=== PATIENT | male | born 1970 | race Two or more races ===

== ENCOUNTER 2019-07-23 07:50 | Emergency (ER) | payer SELFPAY ==
[~2019-07-23] VITALS: Ht 167.6 cm; Wt 103.5 kg
[~2019-07-23 07:50] MED LIST: ASPI325T11 PO; ATOR40TA59 PO; CLOP75TA PO; LISI-338 PO; METO25TA4 PO; NAPR220T70 PO
[2019-07-23] MEDS ORDERED: IV NORMAL SALINE 1000ML BAG 1,000 ML IV SCH (08:11)
[2019-07-23] MEDS ORDERED: fentaNYL PF VIAL 100 MCG/2 ML VIAL IV ONE (08:15)
[2019-07-23] MEDS ORDERED: ONDANSETRON PF 4 MG/2 ML VIAL. IV ONE (08:15)
[2019-07-23 08:31] LABS: BILIRUBIN,URINE NEGATIVE (NEG); CLARITY,URINE CLEAR; COLOR,URINE YELLOW; NITRITE,URINE NEGATIVE (NEG); PH,URINE 5.5; PROTEIN,URINE NEGATIVE (NEG-TRACE); UROBILINOGEN,URINE 0.2 mg/dL (0.2 mg/dL)
[2019-07-23 08:35] LABS: RBC,URINE 20-40 /HPF (0-2)
[2019-07-23 08:36] LABS: BACTERIA,URINE 0 /HPF (0-FEW); WBC,URINE 0 /HPF (0-4)
[2019-07-23 08:49] LABS: BASO # 0.1 x10^3/uL (0.0-0.2); BASO % 1 % (0-3); EOS # 0.1 x10^3/uL (0.0-0.7); EOS % 1 % (0-3); HEMATOCRIT 44.7 % (39.0-53.0); HEMOGLOBIN 15.4 g/dL (13.0-17.5); LYMPH # 1.8 x10^3/uL (1.0-4.8); LYMPH % 16 % (24-48); MEAN CORPUSCULAR HEMOGLOBIN 29 pg (25-35); MEAN CORPUSCULAR HGB CONC 34 g/dL (31-37); MEAN CORPUSCULAR VOLUME 83 fL (79-100); MONO # 0.5 x10^3/uL (0.0-1.1); MONO % 4 % (0-9); NEUT # 8.8 x10^3/uL (1.8-7.7); NEUT % 79 % (31-73); PLATELET COUNT 291 x10^3/uL (140-400); WHITE BLOOD COUNT 11.3 x10^3/uL (4.0-11.0)
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
[2019-07-23 09:00] LABS: CALCIUM 9.1 mg/dL (8.5-10.1); GFR 79.4; POTASSIUM 4.1 mmol/L (3.5-5.1)
[2019-07-23 09:07] LABS: ALBUMIN/GLOBULIN RATIO 1.1 (1.0-1.7); TOTAL BILIRUBIN 0.3 mg/dL (0.2-1.0); TOTAL PROTEIN 7.8 g/dL (6.4-8.2)
--- NOTE | 2019-07-23 09:32 | RAD ---
CT STUDY OF THE ABDOMEN AND PELVIS WITHOUT CONTRAST CLINICAL INDICATIONS: Left flank pain left lower quadrant pain. TECHNIQUE: Noncontrast helical CT scanning of the abdomen and pelvis was performed. Without contrast, the sensitivity to detect organ pathology and GI tract pathology is decreased. PQRS compliance Statement One or more of the following individualized dose reduction techniques were utilized for this study: 1. Automated exposure control 2. Adjustment of the mA and/or kV according to patient size 3. Use of iterative reconstruction technique COMPARISON: None available. FINDINGS: The liver and spleen and pancreas are homogeneous in appearance on this noncontrast study. The gallbladder is normal and no extrahepatic biliary ductal dilatation is seen. No adrenal mass is evident. Small punctate nonobstructing stone of the mid aspect of the right kidney is seen. 2 small stones of the lower pole of the left kidney are seen. Each measures 5 mm. There is mild left-sided hydronephrosis. This is due to a stone within the proximal left ureter measuring 6 mm in size located 2 cm distal to the UPJ. There is periureteral edema here. No hydronephrosis or hydroureter is seen on the right side. No renal mass is seen on either side on this noncontrast study. No perinephric fluid collection is seen. Urinary bladder is not distended. No focal aneurysmal dilatation of the abdominal aorta is seen. No enlarged abdominal or pelvic lymphadenopathy is evident. The terminal ileum and appendix are normal. No obstructive bowel pattern is evident. No free air or free fluid or mesenteric edema is evident. No lung base consolidation is evident. No lytic process is evident. IMPRESSION: Mild left-sided hydronephrosis due to a 6 mm proximal left ureteral stone located 2 cm distal to the UPJ. Electronically signed by: Fernandez Fernández MD (07/23/2019 9:29 AM) [facility]
[2019-07-23] MEDS ORDERED: KETOROLAC 30 MG/ML VIAL. IVP ONE (09:45)
[2019-07-23] MEDS ORDERED: HYDROcodone/APAP 5/325MG 1 TAB TABLET PO ONE (09:45)
[2019-07-23] MEDS ORDERED: TAMSULOSIN 0.4 MG CAP.ER.24H. PO ONE (09:45)
[2019-07-23 10:00] VITALS: BP 142/70
[2019-07-23] MEDS ORDERED: HYDR-3164 PO (10:15)
[2019-07-23] MEDS ORDERED: TAMS0.4C97 PO (10:15)
[2019-07-23] MEDS ORDERED: IBUP-1060 PO (10:15)
== END 2019-07-23 10:21 | disposition home or self-care (01) ==
LOC: ER 07:50
DX: N20.0 Calculus of kidney (principal); N23 Unspecified renal colic; I10 Essential (primary) hypertension; I25.2 Old myocardial infarction
CPT/HCPCS: 36415; 74176; 80053; 81001; 83690; 85025; 96374; 96375; 99285; J1885; J2405; J3010; J7030

== ENCOUNTER 2019-08-18 00:58 | Emergency (ER) | payer SELFPAY ==
[~2019-08-18] VITALS: Ht 167.6 cm; Wt 104.3 kg
[~2019-08-18 00:58] MED LIST changes: +HYDR-3164 PO; +IBUP-1060 PO; +TAMS0.4C97 PO
[2019-08-18 01:23] VITALS: BP 153/86
--- NOTE | 2019-08-18 02:23 | PHYS DOC ---
Past Medical History Past Medical History: High Cholesterol, Hypertension, [place], Other Additional Past Medical Histor: KIDNEY STONE Past Surgical History: Other Additional Past Surgical Histo: STENTS Alcohol Use: None Drug Use: None Adult General Chief Complaint Chief Complaint: UPPER EXTREMITY PAIN HPI HPI 49-year-old male with underlying history of hypertension history coronary artery disease status post 2 stent placement approximately 2 years ago complains of right head right neck shoulder and arm discomfort, paresthesia was shooting dago ns at times. 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 He does describe intermittent numbness and tingling of the right arm. Movements make his pain worse. He has no tenderness appreciated to his right shoulder on exam. Patient's blood pressure 153/86, saturations 96%, heart rate 86. Patient states this discomfort is not similar to his previous cardiac events. Patient denies any shortness of breath, nausea, vomiting, chest pain, abdominal pain Review of Systems Review of Systems Constitutional: Denies fever or chills [] Respiratory: Denies cough or shortness of breath [] Cardiovascular: No additional information not addressed in HPI [] GI: Denies abdominal pain, nausea, vomiting, bloody stools or diarrhea [] Musculoskeletal: right shoulder/neck pain with intermittent numbness and tingling Integument: Denies rash or skin lesions [] Neurologic: Denies headache, focal weakness or sensory changes [] All other systems were reviewed and found to be within normal limits, except as documented in this note. Current Medications Current Medications Current Medications Medications (Trade) Dose Ordered Sig/[facility] Start Time Stop Time Status Last Admin Dose Admin Ketorolac Tromethamine (Toradol Im) 60 mg 1X ONCE 08/18/19 02:30 08/18/19 02:31 DC 08/18/19 02:36 60 MG Orphenadrine Citrate (Norflex) 60 mg 1X ONCE 08/18/19 02:30 08/18/19 02:31 DC 08/18/19 02:34 60 MG Allergies Allergies Allergies Coded Allergies Type Severity Reaction Last Updated Verified No Known Drug Allergies 06/17/18 No Physical Exam Physical Exam Constitutional: Well developed, well nourished, no acute distress, non-toxic appearance. [] HENT: Normocephalic, atraumatic, bilateral external ears normal, oropharynx moist, no oral exudates, nose normal. [] Eyes: PERRLA, EOMI, conjunctiva normal, no discharge. [] Neck: Normal range of motion, TTP along trapezius, supple, no stridor. [] Cardiovascular:Heart rate regular rhythm, no murmur [] Lungs & Thorax: Bilateral breath sounds clear to auscultation [] Skin: Warm, dry, no erythema, no rash. [] Back: No tenderness, no CVA tenderness. [] Extremities: No tenderness, no edema. Intermittent numbness and tingling with movements, neck ROM with increased pain [] Neurologic: Alert and oriented X 3, no focal deficits noted. [] Psychologic: Affect normal, judgement normal, mood normal. [] Current Patient Data Vital Signs Vital Signs Date Time Temp Pulse Resp B/P (MAP) Pulse Ox O2 Delivery O2 Flow Rate FiO2 08/18/19 01:23 97.9 80 20 153/86 (108) 97 Room Air 97.9 EKG EKG [] Radiology/Procedures Radiology/Procedures [facility] [address] [place] [address] IMAGING REPORT Signed PATIENT: LYNNETTE ARIAS AACCOUNT: [id number] : 1970 LOCATION: ER AGE: 49 SEX: M EXAM STATUS: REG ER ORD. PHYSICIAN: ADY BILL MD REASON: neck pain, paresthesia with probable cervical radiculopathy PROCEDURE: CT HEAD AND CERVICAL SPINE WO CT head without contrast: Reason for examination: Neck pain and paresthesias with probable cervical radiculopathy. Axial images were obtained through the brain. No contrast was administered. Reconstruction was performed in sagittal and coronal planes. Ventricular systems are symmetric and not dilated. No midline shift is seen. There is no evidence of intracranial hemorrhage. There are no infarcts, masses or edema. No abnormalities of seen at the orbits. The paranasal sinuses and mastoid air cells are clear. No acute skull abnormality is seen. IMPRESSION: No acute intracranial abnormality evident. CT cervical spine without contrast: Helical images were obtained through the cervical spine from skull base through the thoracic apices with no contrast administered. Reconstruction was performed in sagittal and coronal planes. The C1 ring is intact. The odontoid process appears to be intact and normally centered between the lateral masses of C1. The cervical vertebral bodies are normally aligned anteriorly and posteriorly. No acute fracture or subluxation is seen. The posterior elements appear to be intact. The intervertebral discs are maintained. No gross abnormality seen at the spinal cord. There are some hypertrophic osteophyte formation posteriorly into the right at the C6-7 level which causes some right lateral recess stenosis. No other significant hypertrophic spurring or spinal stenosis is apparent. IMPRESSION: Hypertrophic spurring to the right at the C5-6 level causing right lateral recess stenosis. No other significant abnormality evident in the cervical spine. Exposure: One or more of the following individualized dose reduction techniques were utilized for this examination: 1. Automated exposure control 2. Adjustment of the mA and/or kV according to patient size 3. Use of iterative reconstruction technique. Electronically signed by: Lora Mckeon MD (08/18/2019 3:49 AM) [facility] DICTATED and SIGNED BY: LORA MCKEON MD DATE: 08/18/19 0349 [] Course & Med Decision Making Course & Med Decision Making Pertinent Labs and Imaging studies reviewed. (See chart for details) []49-year-old male with underlying history of hypertension history coronary artery disease status post 2 stent placement approximately 2 years ago complains of right head right neck shoulder and arm discomfort, paresthesia was shooting pains at times. 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 He does describe intermittent numbness and tingling of the right arm. Movements make his pain worse. He has no tenderness appreciated to his right shoulder on exam. Patient's blood pressure 153/86, saturations 96%, heart rate 86. Patient states this discomfort is not similar to his previous cardiac events. Patient denies any shortness of breath, nausea, vomiting, chest pain, abdominal pain Norflex/Toradol with improved pain CT with evidence of C5-C6 lateral recess stenosis discussed findings with patient Return precautions provided Recommend dc home and follow up with PCP as needed Dragon Disclaimer Dragon Disclaimer This electronic medical record was generated, in whole or in part, using a voice recognition dictation system. Departure Departure Impression: Primary Impression: Cervical radiculopathy at C5 Additional Impression: Cervical radiculopathy at C6 Disposition: HOME, SELF-CARE Condition: IMPROVED Referrals: NO PCP (PCP) Patient Instructions: Cervical Radiculopathy, [id number] Additional Instructions: Recommend follow up with PCP 3 - 5 days Return to the ER with worsening symptoms, intractable pain, fever, altered mental status Tylenol/Motrin as needed for pain Take new medications as prescribed CT with evidence of C5-C6 lateral recess stenosis Scripts Cyclobenzaprine Hcl (CYCLOBENZAPRINE HCL) 10 Mg Tablet 1 TAB PO TID PRN for MUSCLE SPASMS, #21 TAB Prov: ADY BILL MD 08/18/19 Diclofenac Sodium (DICLOFENAC SODIUM) 50 Mg Tablet.dr 1 TAB PO BID for 5 Days, #10 TAB 1 Refill Prov: ADY BILL MD 08/18/19 Problem Qualifiers ADY BILL MD Aug 18, 2019 02:23
[2019-08-18] MEDS ORDERED: KETOROLAC 60 MG/2 ML VIAL. IM ONE (02:30)
[2019-08-18] MEDS ORDERED: ORPHENADRINE CITRATE 60 MG/2 ML VIAL. IM ONE (02:30)
--- NOTE | 2019-08-18 03:52 | RAD ---
CT head without contrast: Reason for examination: Neck pain and paresthesias with probable cervical radiculopathy. Axial images were obtained through the brain. No contrast was administered. Reconstruction was performed in sagittal and coronal planes. Ventricular systems are symmetric and not dilated. No midline shift is seen. There is no evidence of intracranial hemorrhage. There are no infarcts, masses or edema. No abnormalities of seen at the orbits. The paranasal sinuses and mastoid air cells are clear. No acute skull abnormality is seen. IMPRESSION: No acute intracranial abnormality evident. CT cervical spine without contrast: Helical images were obtained through the cervical spine from skull base through the thoracic apices with no contrast administered. Reconstruction was performed in sagittal and coronal planes. The C1 ring is intact. The odontoid process appears to be intact and normally centered between the lateral masses of C1. The cervical vertebral bodies are normally aligned anteriorly and posteriorly. No acute fracture or subluxation is seen. The posterior elements appear to be intact. The intervertebral discs are maintained. No gross abnormality seen at the spinal cord. There are some hypertrophic osteophyte formation posteriorly into the right at the C6-7 level which causes some right lateral recess stenosis. No other significant hypertrophic spurring or spinal stenosis is apparent. IMPRESSION: Hypertrophic spurring to the right at the C5-6 level causing right lateral recess stenosis. No other significant abnormality evident in the cervical spine. Exposure: One or more of the following individualized dose reduction techniques were utilized for this examination: 1. Automated exposure control 2. Adjustment of the mA and/or kV according to patient size 3. Use of iterative reconstruction technique. Electronically signed by: Lora Frey MD (08/18/2019 3:49 AM) [facility]
[2019-08-18] MEDS ORDERED: CYCL10TA2 PO (04:01)
[2019-08-18] MEDS ORDERED: DICL50TA4 PO (04:01)
== END 2019-08-18 04:05 | disposition home or self-care (01) ==
LOC: ER 00:58
DX: M50.122 Cervical disc disorder at C5-C6 level with radiculopathy (principal); M25.511 Pain in right shoulder; E78.00 Pure hypercholesterolemia, unspecified; I10 Essential (primary) hypertension; I25.10 Atherosclerotic heart disease of native coronary artery without angina pectoris; I25.2 Old myocardial infarction; Z87.442 Personal history of urinary calculi; Z98.890 Other specified postprocedural states
CPT/HCPCS: 70450; 72125; 96372; 99284; J1885; J2360

== ENCOUNTER 2019-11-29 20:27 | Emergency (ER) | payer SELFPAY ==
[~2019-11-29] VITALS: Ht 167.6 cm; Wt 99.7 kg
[~2019-11-29 20:27] MED LIST changes: +CYCL10TA2 PO; +DICL50TA4 PO
[2019-11-29 20:56] LABS: BILIRUBIN,URINE NEGATIVE (NEG); CLARITY,URINE CLEAR; COLOR,URINE YELLOW; NITRITE,URINE NEGATIVE (NEG); PH,URINE 6.5 (<5.0-8.0); PROTEIN,URINE NEGATIVE (NEG-TRACE); UROBILINOGEN,URINE 0.2 mg/dL (0.2 mg/dL)
[2019-11-29 21:05] LABS: BACTERIA,URINE 0 /HPF (0-FEW); WBC,URINE OCC /HPF (0-4)
[2019-11-29 21:06] LABS: RBC,URINE 20-40 /HPF (0-2)
[2019-11-29] MEDS ORDERED: HYDROmorphone 2 MG/ML VIAL IV/SQ PRN (21:30)
--- NOTE | 2019-11-29 21:31 | PHYS DOC ---
Past Medical History Past Medical History: High Cholesterol, Hypertension Additional Past Medical Histor: KIDNEY STONE Past Surgical History: No Surgical History Additional Past Surgical Histo: STENTS Smoking Status: Never Smoker Alcohol Use: None Drug Use: None General Adult EDM: Chief Complaint: FLANK PAIN HPI: HPI: Patient is a 49 year old male who presents with complaint of left flank pain that started yesterday morning. Patient rates pain at a 10 out of 10. He states these had some nausea but no vomiting. He also admits to diaphoresis. Patient indicates that he has a history of kidney stones in the past. Patient states that nothing improves or worsens the pain.[] Review of Systems: Review of Systems: Constitutional: Denies fever or chills. [] Respiratory: Denies cough or shortness of breath. [] Cardiovascular: Denies chest pain or edema. [] GI: Complains of left-sided flank/abdominal pain with nausea. Denies vomiting or diarrhea. [] Musculoskeletal: Complains of left sided mid to lower back pain. [] Integument: Denies rash. [] Neurologic: Denies headache, focal weakness or sensory changes. [] Heart Score: Risk Factors: Risk Factors: DM, Current or recent (<one month) smoker, HTN, HLP, family history of CAD, obesity. Risk Scores: Score 0 - 3: 2.5% MACE over next 6 weeks - Discharge Home Score 4 - 6: 20.3% MACE over next 6 weeks - Admit for Clinical Observation Score 7 - 10: 72.7% MACE over next 6 weeks - Early Invasive Strategies Allergies: Allergies: Allergies Coded Allergies Type Severity Reaction Last Updated Verified No Known Drug Allergies 06/17/18 No Physical Exam: PE: Constitutional: Well developed, well nourished, no acute distress, non-toxic ap pearance. [] HENT: Normocephalic, atraumatic, bilateral external ears normal, oropharynx moist, no oral exudates, nose normal. [] Eyes: PERRLA, EOMI, conjunctiva normal, no discharge. [] Neck: Normal range of motion, no tenderness, supple, no stridor. [] Cardiovascular: Regular rate and rhythm[] Lungs & Thorax: Bilateral breath sounds clear to auscultation [] Abdomen: Bowel sounds normal, soft, no tenderness. [] Skin: Warm, dry, no erythema, no rash. [] Extremities: No tenderness, no cyanosis, no clubbing, ROM intact, no edema. [] Neurologic: Alert and oriented X 3, no focal deficits noted. [] Current Patient Data: Labs: Laboratory Tests Test 11/29/19 20:45 Urine Collection Type Unknown Urine Color Yellow Urine Clarity Clear Urine pH 6.5 (<5.0-8.0) Urine Specific [place] 1.020 (1.000-1.030) Urine Protein Negative mg/dL (NEG-TRACE) Urine Glucose (UA) Negative mg/dL (NEG) Urine Ketones (Stick) Negative mg/dL (NEG) Urine Blood Moderate (NEG) Urine Nitrite Negative (NEG) Urine Bilirubin Negative (NEG) Urine Urobilinogen Dipstick 0.2 mg/dL (0.2 mg/dL) Urine Leukocyte Esterase Negative (NEG) Urine RBC 20-40 /HPF (0-2) Urine WBC Occ /HPF (0-4) Urine Bacteria 0 /HPF (0-FEW) Vital Signs: Vital Signs Date Time Temp Pulse Resp B/P (MAP) Pulse Ox O2 Delivery O2 Flow Rate FiO2 11/29/19 21:14 98.5 85 20 202/95 (130) 96 Room Air 98.5 EKG: EKG: [] Radiology/Procedures: Radiology/Procedures: [] Impression: PROCEDURE: CT ABDOMEN PELVIS WO CONTRAST Examination: CT of the abdomen pelvis without contrast HISTORY: History of left flank pain COMPARISON: 07/23/2019 TECHNIQUE: Axial CT images of the abdomen pelvis were performed without contrast. Coronal and sagittal reformats are performed Exposure: One or more of the following individualized dose reduction techniques were utilized for this examination: 1. Automated exposure control 2. Adjustment of the mA and/or kV according to patient size 3. Use of iterative reconstruction technique FINDINGS: Minimal bibasilar lung atelectasis. No evidence of free air identified in the abdomen. The evaluation of the solid organs is limited due to lack of IV contrast. The evaluation of bowel is limited due to lack of oral contrast. The noncontrasted liver, spleen, adrenals grossly appears unremarkable. Gallbladder is mildly distended. The stomach is mildly distended. The visualized pancreas grossly appears unremarkable. The small bowel is nondilated. The appendix is normal. Feces and gas noted in the colon. Urinary bladder is mildly distended. Punctate bilateral intrarenal collecting system calculi identified with the largest measuring 4 mm in the left kidney. Moderate left-sided hydronephrosis and mild left hydroureter identified with calculus identified in the mid left ureter measuring 5.5 mm. Urinary bladder is mildly distended. Moderate degenerative changes lumbar spine. IMPRESSION: 1. 5.5 mm calculus identified in the mid left ureter causing moderate left-sided hydronephrosis. 2. Bilateral intrarenal collecting system calculi. Electronically signed by: Sam Stallings MD (11/29/2019 10:03 PM) [id number] DICTATED and SIGNED BY: SAM STALLINGS MD DATE: 11/29/192202 Course & Med Decision Making: Course & Med Decision Making Pertinent Labs and Imaging studies reviewed. (See chart for details) [] Dragon Disclaimer: Dragon Disclaimer: This electronic medical record was generated, in whole or in part, using a voice recognition dictation system. Departure Departure Impression: Primary Impression: Ureterolithiasis Disposition: HOME, SELF-CARE Condition: STABLE Referrals: NO PCP (PCP) Patient Instructions: Diet for Kidney Stones, Kidney Stones Scripts Promethazine Hcl (PROMETHAZINE HCL) 25 Mg Tablet 1 TAB PO PRN Q6HRS PRN for NAUSEA, #12 TAB Prov: EVELYN JAMISON Jr. DO 11/29/19 Tamsulosin Hcl (FLOMAX) 0.4 Mg Cap.er.24h 1 CAP PO DAILY, #7 CAP Prov: EVELYN JAMISON Jr. DO 11/29/19 Oxycodone/Apap 10-325 (PERCOCET 10-325 MG TABLET ) 1 Each Tablet 1 TAB PO QIDPRN PRN for PAIN MDD 4 Tablet(s) for 5 Days, #20 TAB 0 Refills Prov: EVELYN JAMISON Jr. DO 11/29/19 EVELYN JAMISON Jr. DO Nov 29, 2019 21:31
[2019-11-29 21:49] LABS: BASO # 0.1 x10^3/uL (0.0-0.2); BASO % 0 % (0-3); EOS % 0 % (0-3); HEMATOCRIT 44.2 % (39.0-53.0); HEMOGLOBIN 15.2 g/dL (13.0-17.5); LYMPH # 1.5 x10^3/uL (1.0-4.8); LYMPH % 11 % (24-48); MEAN CORPUSCULAR HEMOGLOBIN 28 pg (25-35); MEAN CORPUSCULAR HGB CONC 34 g/dL (31-37); MEAN CORPUSCULAR VOLUME 82 fL (79-100); MONO # 0.7 x10^3/uL (0.0-1.1); MONO % 5 % (0-9); NEUT # 11.9 x10^3/uL (1.8-7.7); NEUT % 84 % (31-73); PLATELET COUNT 283 x10^3/uL (140-400); RED BLOOD COUNT 5.36 x10^6/uL (4.30-5.70); RED CELL DISTRIBUTION WIDTH 13.2 % (11.5-14.5); WHITE BLOOD COUNT 14.2 x10^3/uL (4.0-11.0)
[2019-11-29] MEDS ORDERED: KETOROLAC 30 MG/ML VIAL. IVP ONE (22:00)
[2019-11-29] MEDS ORDERED: ONDANSETRON PF 4 MG/2 ML VIAL. IVP ONE (22:00)
[2019-11-29] MEDS ORDERED: IV NORMAL SALINE 1000ML BAG 1,000 ML IV SCH (22:00)
[2019-11-29 22:01] LABS: CALCIUM 9.1 mg/dL (8.5-10.1); CREATININE 1.4 mg/dL (0.7-1.3); GFR 53.9; POTASSIUM 4.2 mmol/L (3.5-5.1)
[2019-11-29 22:06] LABS: ALBUMIN/GLOBULIN RATIO 1.1 (1.0-1.7); TOTAL BILIRUBIN 0.4 mg/dL (0.2-1.0); TOTAL PROTEIN 7.6 g/dL (6.4-8.2)
--- NOTE | 2019-11-29 22:06 | RAD ---
Examination: CT of the abdomen pelvis without contrast HISTORY: History of left flank pain COMPARISON: 07/23/2019 TECHNIQUE: Axial CT images of the abdomen pelvis were performed without contrast. Coronal and sagittal reformats are performed Exposure: One or more of the following individualized dose reduction techniques were utilized for this examination: 1. Automated exposure control 2. Adjustment of the mA and/or kV according to patient size 3. Use of iterative reconstruction technique FINDINGS: Minimal bibasilar lung atelectasis. No evidence of free air identified in the abdomen. The evaluation of the solid organs is limited due to lack of IV contrast. The evaluation of bowel is limited due to lack of oral contrast. The noncontrasted liver, spleen, adrenals grossly appears unremarkable. Gallbladder is mildly distended. The stomach is mildly distended. The visualized pancreas grossly appears unremarkable. The small bowel is nondilated. The appendix is normal. Feces and gas noted in the colon. Urinary bladder is mildly distended. Punctate bilateral intrarenal collecting system calculi identified with the largest measuring 4 mm in the left kidney. Moderate left-sided hydronephrosis and mild left hydroureter identified with calculus identified in the mid left ureter measuring 5.5 mm. Urinary bladder is mildly distended. Moderate degenerative changes lumbar spine. IMPRESSION: 1. 5.5 mm calculus identified in the mid left ureter causing moderate left-sided hydronephrosis. 2. Bilateral intrarenal collecting system calculi. Electronically signed by: Sam Stallings MD (11/29/2019 10:03 PM) [id number]
[2019-11-29 22:23] VITALS: BP 164/91
[2019-11-29] MEDS ORDERED: TAMS0.4C97 PO (22:23)
[2019-11-29] MEDS ORDERED: OXYC1TAB22 PO (22:23)
[2019-11-29] MEDS ORDERED: PROM25TA10 PO (22:23)
[2019-11-29] MEDS ORDERED: TAMSULOSIN 0.4 MG CAP.ER.24H. PO ONE (23:00)
== END 2019-11-29 22:45 | disposition home or self-care (01) ==
LOC: ER 20:27
DX: N13.2 Hydronephrosis with renal and ureteral calculous obstruction (principal); R10.9 Unspecified abdominal pain; R11.0 Nausea; R61 Generalized hyperhidrosis; M54.5 Low back pain; E78.00 Pure hypercholesterolemia, unspecified; I10 Essential (primary) hypertension; Z87.442 Personal history of urinary calculi; Z98.890 Other specified postprocedural states
CPT/HCPCS: 36415; 74176; 80053; 81001; 83690; 85025; 96374; 96375; 99284; J1170; J1885; J2405; J7030

== ENCOUNTER 2020-05-23 22:18 | Emergency (ER) | payer SELFPAY ==
[~2020-05-23] VITALS: Ht 167.6 cm; Wt 100.0 kg
[~2020-05-23 22:18] MED LIST changes: +OXYC1TAB22 PO; +PROM25TA10 PO
--- NOTE | 2020-05-23 22:50 | PHYS DOC ---
Past Medical History Past Medical History: High Cholesterol, Hypertension Additional Past Medical Histor: KIDNEY STONE Past Surgical History: No Surgical History Additional Past Surgical Histo: STENTS Smoking Status: Never Smoker Alcohol Use: None Drug Use: None General Adult EDM: Chief Complaint: HEADACHE HPI: HPI: Patient is a 50 year old male with a past medical history hypertension hype rlipidemia history COVID-19 positive presents with a chief complaint of left- sided headache. Patient states headache started yesterday around 1800 hrs. is located in the left parietal region. Patient states pain is been constant since onset. Patient denies any associated nausea vomiting vision changes or weakness. Patient states he took ibuprofen around noon this afternoon with mild improvement. 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 Patient ambulated into the ER with a normal steady gait. Patient arrived by private vehicle. Review of Systems: Review of Systems: Constitutional: Denies fever or chills. [] Eyes: Denies change in visual acuity. [] HENT: Denies nasal congestion or sore throat. [] Respiratory: Denies cough or shortness of breath. [] Cardiovascular: Denies chest pain or edema. [] GI: Denies abdominal pain, nausea, vomiting, bloody stools or diarrhea. [] : Denies dysuria. [] Musculoskeletal: Denies back pain or joint pain. [] Integument: Denies rash. [] Neurologic: Denies , focal weakness or sensory changes. [Positive headache] Endocrine: Denies polyuria or polydipsia. [] Lymphatic: Denies swollen glands. [] Psychiatric: Denies depression or anxiety. [] Heart Score: Risk Factors: Risk Factors: DM, Current or recent (<one month) smoker, HTN, HLP, family history of CAD, obesity. Risk Scores: Score 0 - 3: 2.5% MACE over next 6 weeks - Discharge Home Score 4 - 6: 20.3% MACE over next 6 weeks - Admit for Clinical Observation Score 7 - 10: 72.7% MACE over next 6 weeks - Early Invasive Strategies Allergies: Allergies: Allergies Coded Allergies Type Severity Reaction Last Updated Verified No Known Drug Allergies 06/17/18 No Physical Exam: PE: Constitutional: Well developed, well nourished, no acute distress, non-toxic appearance. [] HENT: Normocephalic, atraumatic, bilateral external ears normal, oropharynx moist, no oral exudates, nose normal. [] Eyes: PERRLA, EOMI, conjunctiva normal, no discharge. [] Neck: Normal range of motion, no tenderness, supple, no stridor. [] Cardiovascular:Heart rate regular rhythm, no murmur [] Lungs & Thorax: Bilateral breath sounds clear to auscultation [] Abdomen: Bowel sounds normal, soft, no tenderness, no masses, no pulsatile masses. [] Skin: Warm, dry, no erythema, no rash. [] Back: No tenderness, no CVA tenderness. [] Extremities: No tenderness, no cyanosis, no clubbing, ROM intact, no edema. [] Neurologic: Alert and oriented X 3, normal motor function, normal sensory function, no focal deficits noted. [] Psychologic: Affect normal, judgement normal, mood normal. [] EKG: EKG: [] Radiology/Procedures: Radiology/Procedures: [] Course & Med Decision Making: Course & Med Decision Making Pertinent Labs and Imaging studies reviewed. (See chart for details) [] After initial exam CT head was ordered. Patient pain was treated with Tylenol. FINDINGS: No focal parenchymal lesion or hemorrhage is identified. There is no midline shift or sulcal effacement. No acute vascular territory infarction is identified. Escoto-white distinction is preserved. The ventricular system is within normal limits without compression hydrocephalus. The basal cisterns are well maintained. The visualized portions of the paranasal sinuses and mastoid air cells are well-pneumatized. No acute fractures. IMPRESSION: No acute intracranial abnormality. Exposure: One or more of the following in the visualized dose reduction techniques were utilized for this examination: 1. Automated exposure control 2. Adjustment of the MA and/or KV according to patient size Use of iterative of reconstructive technique Patient with no focal neurological deficits. Patient CT head negative. Patient advised to take Tylenol or ibuprofen for his headache. Will prescribe patient Tylenol 3. Dragon Disclaimer: Dragon Disclaimer: This electronic medical record was generated, in whole or in part, using a voice recognition dictation system. Departure Departure Impression: Primary Impression: Headache Disposition: 01 DC HOME SELF CARE/HOMELESS Condition: STABLE Referrals: NO PCP (PCP) Patient Instructions: Headache, FAQs Scripts Acetaminophen With Codeine (ACETAMINOPHEN-COD #3 TABLET) 1 Each Tablet 1 TAB PO PRN Q4HRS PRN for PAIN for 10 Days, #14 TAB Prov: AISLINN MCGEE I DO 05/23/20 AISLINN MCGEE I DO May 23, 2020 22:50
[2020-05-23] MEDS ORDERED: ACETAMINOPHEN 325 MG TABLET. PO ONE (23:00)
--- NOTE | 2020-05-23 23:05 | RAD ---
Exam: CT head INDICATION: Left-sided headache TECHNIQUE: Sequential axial images through the head were obtained without the administration of IV contrast. Comparisons: None FINDINGS: No focal parenchymal lesion or hemorrhage is identified. There is no midline shift or sulcal effacement. No acute vascular territory infarction is identified. Escoto-white distinction is preserved. The ventricular system is within normal limits without compression hydrocephalus. The basal cisterns are well maintained. The visualized portions of the paranasal sinuses and mastoid air cells are well-pneumatized. No acute fractures. IMPRESSION: No acute intracranial abnormality. Exposure: One or more of the following in the visualized dose reduction techniques were utilized for this examination: 1. Automated exposure control 2. Adjustment of the MA and/or KV according to patient size Use of iterative of reconstructive technique Electronically signed by: Hung Kaur MD (05/23/2020 11:02 PM) FRANC
[2020-05-23 23:11] VITALS: BP 170/91
[2020-05-23] MEDS ORDERED: ACET1TAB33 PO (23:17)
== END 2020-05-23 23:27 | disposition home or self-care (01) ==
LOC: ER 22:18
DX: R51.9 Headache, unspecified (principal); E78.00 Pure hypercholesterolemia, unspecified; I10 Essential (primary) hypertension; Z87.442 Personal history of urinary calculi; Z98.890 Other specified postprocedural states
CPT/HCPCS: 70450; 99284